=== PATIENT | female | born 1985 | race Caucasian/White ===

== ENCOUNTER 2019-07-19 16:50 | Inpatient (IN) | payer MEDICAID ==
[~2019-07-19] VITALS: Ht 167.6 cm; Wt 53.7 kg
[2019-07-19] MEDS ORDERED: acetaminophen 325mg tablet PO PRN ×2 (17:10)
[2019-07-19] MEDS ORDERED: magnesium Cl slow-release 64mg tablet PO PRN (17:10)
[2019-07-19] MEDS ORDERED: magnesium 4gm in 100ml NS 100 ML IV PRN (17:10)
[2019-07-19] MEDS ORDERED: magnesium hydroxide 30ml (MOM) UD suspension PO PRN (17:10)
[2019-07-19] MEDS ORDERED: morphine 4 MG/ML inj SYRINge IV PRN (17:10)
[2019-07-19] MEDS ORDERED: sodium bicarbonate (8.4%) inj. 75 MEQ in dextrose 5% water 500ml 1,075 ML IV SCH (17:10)
[2019-07-19] MEDS ORDERED: ondansetron/PF 4mg/2ml inj IV PRN (17:10)
[2019-07-19] MEDS ORDERED: ipratropium/albuterol 3ml nebule NEB PRN (17:10)
[2019-07-19] MEDS ORDERED: magnesium 2GM in 50ml NS 50 ML IV PRN (17:10)
[2019-07-19] MEDS ORDERED: sodium phosphate inj. 15 MMOL in dextrose 5%-water 250 ML IV PRN (17:10)
[2019-07-19] MEDS ORDERED: morphine 2 MG/ML inj. syringe IV PRN (17:10)
[2019-07-19] MEDS ORDERED: Neutra Phos packet PO PRN (17:10)
[2019-07-19] MEDS ORDERED: midazolam 2 mg/2 ml injection IV PRN (17:10)
[2019-07-19] MEDS ORDERED: sodium phosphate inj. 30 MMOL in dextrose 5%-water 250 ML IV PRN (17:10)
[2019-07-19] MEDS ORDERED: potassium Cl 20 mEq SR tablet PO PRN (17:10)
[2019-07-19] MEDS ORDERED: LIDOcaine 2% 10ml TOPICAL JELLY (Urojet) TP ONE (17:10)
[2019-07-19 17:45] VITALS: BP 96/63
--- NOTE | 2019-07-19 17:45 | NUR ---
received pt from [facility] via air. piv b feet and IO in right tibia. Dr Gillis here placed CL
[2019-07-19] MEDS ORDERED: vancomycin/NS 1 GM ADD-VANTAGE 250 ML IV ONE (17:55)
--- NOTE | 2019-07-19 18:10 | NUR ---
Patient in room CICU 2016. I have received report from gregory rick and had the opportunity to ask questions and assume patient care.
--- NOTE | 2019-07-19 18:10 | NUR ---
report to Eusebia ACKERMAN
[2019-07-19 18:11] LABS: ABG BASE EXCESS -9.9 mmol/L (-2.0-3.0); ABG HCO3 15.1 mmol/L (22.0-26.0); ABG OXYGEN SATURATION 97.6 % (95-98); ABG PH (T) 7.291 (7.350-7.450); ABG PO2 (T) 112.6 mmHg (83-108); ALLEN'S TEST POSITIVE; FCOHb 0.2 % (0.5-1.5); FMetHb 0.4 % (0.3-1.12); PEEP 5 cm H2O; RESPIRATORY RATE 18 b/min; TIDAL VOLUME 500 mL; TOTAL HEMOGLOBIN 19.6 G/dl (12.0-16.0)
--- NOTE | 2019-07-19 18:15 | NUR ---
cxr ordered for et tube and central line placement
[2019-07-19] MEDS: FENTANYL-0.9 % NACL/PF 100 ML IV PRN (18:17)
[2019-07-19 19:00] VITALS: BP 93/66
--- NOTE | 2019-07-19 19:00 | NUR ---
pt having copious liquid bm ordered rectal tube
[2019-07-19] MEDS: sodium bicarbonate (8.4%) inj. 75 MEQ in dextrose 5% water 500ml 500 ML IV SCH (19:04)
[2019-07-19] MEDS: midazolam 100mg in NS 100ml 100 ML IV PRN (19:06)
[2019-07-19] MEDS: heparin, porcine 5000 units/ml vial SQ SCH (19:09)
[2019-07-19] MEDS: ipratropium/albuterol 3ml nebule NEB SCH ×2 (19:09→23:23)
[2019-07-19 20:00] VITALS: BP 95/66
[2019-07-19 20:25] LABS: CLARITY,URINE SLIGHTLY CLOUDY (Clear); COLOR,URINE YELLOW (Yellow); GLUCOSE, URINE NEGATIVE (Neg); KETONES,URINE NEGATIVE (Neg); LEUKOCYTE ESTERASE ,URINE NEGATIVE (Neg); NITRITES, URINE NEGATIVE (Neg); OCCULT BLOOD,URINE MODERATE (Neg); PROTEIN,URINE 30 mg/dl (Neg); UROBILINOGEN,URINE 0.2 E.U/dL (0.2-1.0)
[2019-07-19 20:27] LABS: BASOPHILS % (AUTO) 0 % (0-1); EOSINOPHILS % (AUTO) 0.1 % (0-6); HEMATOCRIT 54.4 % (35.0-45.0); LYMPHOCYTES # (AUTO) 0.8 X10'3 (1.1-4.8); LYMPHOCYTES % (AUTO) 2.8 % (21-51); MEAN CORPUSCULAR HEMOGLOBIN 30.8 PG (27.0-31.0); MEAN CORPUSCULAR HGB CONC 33.2 g/dL (33.0-36.5); MEAN CORPUSCULAR VOLUME 92.9 FL (78-98); MEAN PLATELET VOLUME 8.8 FL (7.4-10.4); MONOCYTES # (AUTO) 1.4 X10'3 (0-0.9); MONOCYTES % (AUTO) 4.9 % (2-12); NEUTROPHILS # (AUTO) 26.2 X10'3 (1.8-7.7); NEUTROPHILS % (AUTO) 92.2 % (42-75); PLATELET COUNT 184 X10'3 (140-440); RED BLOOD COUNT 5.85 X10'6 (4.20-5.60); RED CELL DISTRIBUTION WIDTH 13.6 % (11.5-14.5)
[2019-07-19 20:30] LABS: WHITE BLOOD COUNT 28.5 X10'3 (4.5-11.0)
[2019-07-19 20:36] LABS: UA COLLECTION TYPE NON-SPECIFIED
[2019-07-19 20:38] LABS: BACTERIA,URINE NONE SEEN /HPF (Neg); CELLULAR CAST 0-4 /LPF (NEGATIVE); MUCUS STRANDS FEW /LPF (Neg); RBC,URINE 0-2 /HPF (0-2); SQUAMOUS EPITHELIAL CELL,UR FEW /LPF (FEW); TRANSITIONAL EPI CELLS,URINE FEW /HPF; WBC,URINE 0-4 /HPF (0-4)
[2019-07-19] MEDS ORDERED: normal saline 500ml IV soln 1,000 ML IV ONE (20:40)
[2019-07-19] MEDS ORDERED: normal saline 1000ml 1,000 ML IV SCH (20:40)
[2019-07-19 20:46] LABS: ALANINE AMINOTRANSFERASE 124 U/L (12-78); ALBUMIN 3.4 G/DL (3.4-5.0); ALBUMIN/GLOBULIN RATIO 1.3 (1.1-1.5); ALKALINE PHOSPHATASE 80 IU/L (46-116); AMYLASE 205 U/L (25-115); ANION GAP 10 (8-16); ASPARTATE AMINO TRANSFERASE 128 U/L (10-37); BILIRUBIN,TOTAL 0.4 MG/DL (0.1-1.0); BLOOD UREA NITROGEN 18 MG/DL (7-18); BUN/CREATININE RATIO 19.8 (6.6-38.0); CALCIUM 7.5 MG/DL (8.5-10.1); CHLORIDE 112 MMOL/L (99-107); CREATININE 0.91 MG/DL (0.40-0.90); GLUCOSE 134 MG/DL (70-104); LDL CHOLESTEROL 53 MG/DL (50-100); LIPASE 170 U/L (73-393); PHOSPHORUS 2.4 MG/DL (2.3-4.5); POTASSIUM 4.2 MMOL/L (3.5-5.1); SODIUM 144 MMOL/L (135-145); TOTAL CARBON DIOXIDE 22.3 MMOL/L (24-32); eGFR 70 ML/MIN
[2019-07-19 20:54] LABS: PLATELET ESTIMATE NORMAL; TOTAL CELLS COUNTED 100
[2019-07-19 21:00] VITALS: BP 106/75
[2019-07-19 21:07] LABS: PARTIAL THROMBOPLASTIN TIME 27 SECONDS (22-32)
[2019-07-19 21:13] LABS: PLATELET COUNT 184 X10'3 (140-440)
[2019-07-19 21:59] VITALS: BP 106/75
[2019-07-19 23:04] VITALS: BP 117/83
[2019-07-20] VITALS (17 sets, daily range): BP systolic 116–144; BP diastolic 72–94
[2019-07-20] MEDS: sodium bicarbonate (8.4%) inj. 75 MEQ in dextrose 5% water 500ml 500 ML IV SCH ×2 (00:35→05:37)
[2019-07-20] MEDS: FENTANYL-0.9 % NACL/PF 100 ML IV PRN (01:39)
--- NOTE | 2019-07-20 02:21 | NUR ---
[facility] - [phone]
--- NOTE | 2019-07-20 02:22 | NUR ---
bilateral lower piv and io d/c, cannula intact.
--- NOTE | 2019-07-20 02:23 | NUR ---
pt wakes up and attempts to talk around the tube. oriented patient to surroundings. pt does not follow commands. pt sits straight up in bed and attempts to yank on restraints. sedation increased for safety.
[2019-07-20 03:09] LABS: ALANINE AMINOTRANSFERASE 102 U/L (12-78); ALBUMIN 2.8 G/DL (3.4-5.0); ALBUMIN/GLOBULIN RATIO 1.3 (1.1-1.5); ALKALINE PHOSPHATASE 61 IU/L (46-116); ANION GAP 9 (8-16); ASPARTATE AMINO TRANSFERASE 84 U/L (10-37); BILIRUBIN,TOTAL 0.5 MG/DL (0.1-1.0); BLOOD UREA NITROGEN 15 MG/DL (7-18); BUN/CREATININE RATIO 19.2 (6.6-38.0); CHLORIDE 111 MMOL/L (99-107); CREATININE 0.78 MG/DL (0.40-0.90); GLUCOSE 142 MG/DL (70-104); MAGNESIUM 1.6 MG/DL (1.5-2.4); PHOSPHORUS 2.3 MG/DL (2.3-4.5); POTASSIUM 3.3 MMOL/L (3.5-5.1); SODIUM 144 MMOL/L (135-145); TOTAL CARBON DIOXIDE 23.7 MMOL/L (24-32); eGFR 84 ML/MIN
[2019-07-20 03:12] LABS: BASOPHILS % (AUTO) 0.1 % (0-1); EOSINOPHILS % (AUTO) 0 % (0-6); HEMATOCRIT 45.3 % (35.0-45.0); HEMOGLOBIN 15.2 g/dl (12.0-16.0); LYMPHOCYTES # (AUTO) 0.7 X10'3 (1.1-4.8); LYMPHOCYTES % (AUTO) 4.2 % (21-51); MEAN CORPUSCULAR HEMOGLOBIN 30.8 PG (27.0-31.0); MEAN CORPUSCULAR HGB CONC 33.5 g/dL (33.0-36.5); MEAN CORPUSCULAR VOLUME 91.9 FL (78-98); MONOCYTES # (AUTO) 0.5 X10'3 (0-0.9); MONOCYTES % (AUTO) 2.6 % (2-12); NEUTROPHILS # (AUTO) 16.5 X10'3 (1.8-7.7); NEUTROPHILS % (AUTO) 93.1 % (42-75); PLATELET COUNT 169 X10'3 (140-440); RED BLOOD COUNT 4.93 X10'6 (4.20-5.60); RED CELL DISTRIBUTION WIDTH 13.3 % (11.5-14.5); WHITE BLOOD COUNT 17.7 X10'3 (4.5-11.0)
[2019-07-20] MEDS: potassium CL 10mEq/100ml bag 100 ML IV PRN ×4 (03:19→07:21)
[2019-07-20] MEDS: midazolam 100mg in NS 100ml 100 ML IV PRN (03:24)
[2019-07-20] MEDS: ipratropium/albuterol 3ml nebule NEB SCH ×2 (03:32→07:07)
[2019-07-20 03:50] LABS: ABG BASE EXCESS -1.5 mmol/L (-2.0-3.0); ABG OXYGEN SATURATION 97.6 % (95-98); ABG PCO2 (T) 27.3 mmHg (35.0-45.0); ABG PH (T) 7.485 (7.350-7.450); ABG PO2 (T) 100.4 mmHg (83-108); FMetHb 0.2 % (0.3-1.12); FO2Hb 97.4 % (94-100); PATIENT TEMPERATURE 37.8; PEEP 5 cm H2O; RESPIRATORY RATE 18 b/min; TIDAL VOLUME 500 mL; TOTAL HEMOGLOBIN 15.3 G/dl (12.0-16.0)
--- NOTE | 2019-07-20 05:31 | NUR ---
pt awake, alert, and able to follow commands. will continue to monitor.
--- NOTE | 2019-07-20 06:07 | NUR ---
Problems reprioritized. Patient report given, questions answered & plan of care reviewed
--- NOTE | 2019-07-20 06:30 | NUR ---
Patient in room CICU 2016. I have received report from TYRON Laws and had the opportunity to ask questions and assume patient care.
[2019-07-20] MEDS: heparin, porcine 5000 units/ml vial SQ SCH ×2 (07:34→20:00)
--- NOTE | 2019-07-20 07:35 | NUR ---
patient extubated to 2LNC, tolerating well, NG also discontinued. patient A & O x3.
[2019-07-20] MEDS ORDERED: pantoprazole 40 MG vial IV SCH (08:00)
[2019-07-20] MEDS: vancomycin inj. 750 MG in normal saline 250ml IV soln 250 ML IV SCH ×2 (09:29→18:52)
[2019-07-20] MEDS ORDERED: BUPR1FIL3 SL (09:41)
[2019-07-20] MEDS: buprenorphine/naloxone 8MG-2MG SUBlingual film SL SCH ×2 (10:39→20:24)
--- NOTE | 2019-07-20 15:43 | NUR ---
Report called to receiving RN on Neuro. Pt has all belongings and will be transferring to 4012.
--- NOTE | 2019-07-20 15:44 | NUR ---
Received report from TYRON Fontaine. Awaiting patient arrival to room 4012B.
--- NOTE | 2019-07-20 16:17 | NUR ---
Received patient to room 4012B. Patient A&O x4 c/o of "withdrawing" and asking for suboxone. Patient ambulated from bathroom to bed independently. Oriented to room and call light. Bed is low and locked. Call light within patient's reach.
--- NOTE | 2019-07-20 18:40 | NUR ---
Patient in room ORTHO 4012. I have received report from Fadi ACKERMAN and had the opportunity to ask questions and assume patient care.
[2019-07-20] MEDS: potassium Cl 20 mEq SR tablet PO PRN ×2 (18:41→22:16)
--- NOTE | 2019-07-20 18:43 | NUR ---
Problems reprioritized. Patient report given, questions answered & plan of care reviewed with TYRON Nelson.
[2019-07-20] MEDS ORDERED: vancomycin/NS 1 GM ADD-VANTAGE 250 ML IV SCH (20:00)
[2019-07-20] MEDS ORDERED: mineral oil/petrolatum ophthal oint EACHEYE SCH (20:00)
[2019-07-20] MEDS: lactobacillus rhamnosus 10,000 MMU CELLS/CAPSULE PO SCH (20:24)
[2019-07-21] MEDS: vancomycin inj. 750 MG in normal saline 250ml IV soln 250 ML IV SCH (02:07)
[2019-07-21 06:00] VITALS: BP 119/79
--- NOTE | 2019-07-21 06:00 | NUR ---
Patient in room ORTHO 4012. I have received report from XIMENA ACKERMAN and had the opportunity to ask questions and assume patient care.
--- NOTE | 2019-07-21 06:22 | NUR ---
Problems reprioritized. Patient report given, questions answered & plan of care reviewed with Josee ACKERMAN.
[2019-07-21] MEDS ORDERED: pantoprazole 40mg Tablet.DR PO SCH (07:30)
[2019-07-21] MEDS: lactobacillus rhamnosus 10,000 MMU CELLS/CAPSULE PO SCH (08:00)
[2019-07-21] MEDS: heparin, porcine 5000 units/ml vial SQ SCH (08:00)
--- NOTE | 2019-07-21 08:04 | NUR ---
PATIENT REFUSED LAB DRAW. PATIENT STATES"IM LEAVING WHEN MY RIDE GETS HERE". I ASKED IF SHE COULD WAIT FOR THE DR TO SEE HER ANDS DC HER BUT SHE SAID SHE WOULD GO AMA.
[2019-07-21] MEDS: buprenorphine/naloxone 8MG-2MG SUBlingual film SL SCH (08:17)
[2019-07-21] MEDS ORDERED: VANCOMYCIN LEVEL IV ONE (08:30)
--- NOTE | 2019-07-21 08:30 | NUR ---
PATIENT LEFT AMA WITH ALL BELONGINGS IN POSSESSION. PAPERWORK SIGNED AND IN CHART. NOTIFIED.
[2019-07-21] MEDS ORDERED: bisacodyl 10mg suppository rectal RC PRN (17:10)
== END 2019-07-21 08:35 | disposition left against medical advice (07) | DRG 133 ==
LOC: CICU 2S 17:06 → ORTHO 4S 07-20 16:10
PROVIDERS: ADMIT Internal Medicine Critical Care Medicine; ATTEND Internal Medicine Critical Care Medicine
PROC: 5A1935Z Respiratory Ventilation, Less than 24 Consecutive Hours (ICD-10-PCS; principal; 2019-07-19)
PROC: 0BH17EZ Insertion of Endotracheal Airway into Trachea, Via Natural or Artificial Opening (ICD-10-PCS; 2019-07-19)
PROC: 02HV33Z Insertion of Infusion Device into Superior Vena Cava, Percutaneous Approach (ICD-10-PCS; 2019-07-19)
DX: J96.00 Acute respiratory failure, unspecified whether with hypoxia or hypercapnia (principal); R40.20 Unspecified coma; F19.10 Other psychoactive substance abuse, uncomplicated; Z53.29 Procedure and treatment not carried out because of patient's decision for other reasons
CPT/HCPCS: 36415; 36600; 71045; 80053; 81001; 82140; 82150; 82803; 82948; 83605; 83690; 83721; 83735; 83880; 84100; 84145; 84443; 85018; 85025; 85379; 85384; 85610; 85730; 87070; 87081; 94002; 94003; 94640; 94760; 97110; 97116; 97161; 97530; C9113; G0378; J1644; J2250; J3010; J3370; J3480; J7030; J7040; J7050